=== PATIENT | male | born 1990 | race Caucasian/White ===

== ENCOUNTER 2019-06-27 12:45 | Inpatient (IN) | payer OTHER ==
--- NOTE | 2019-06-27 13:41 | PDOC ---
History of Present Illness - General Chief Complaint: Wound Stated Complaint: SENT BY PCP Time Seen by Provider: 06/27/19 13:10 - History of Present Illness Initial Comments: Mr. Giraldo is a 28 y/o male with PMH significant for autism, OCD, anxiety, depression, PTSD, spinal fracture s/p spinal nerve stimulator, eating disorder, chronic pain, constipation, sent in today by urgent care for worsening cellulitis. He lives in a halfway and is accompanied by a staff member from the facility. Reports that he was seen at urgent care 3 days ago for lethargy, was noted to have cellulitis, and given clindamycin 300 mg TID. He has been compliant with his medication. He began having a fever over the past day of 100.9, and noted increasing erythema over the right elbow and right knee. He presented to urgent care and was sent here for further evaluation. Reports chronic pelvic and back pain. Denies chest pain or shortness of breath or abdominal pain. Past History - Past Medical History Allergies/Adverse Reactions: Allergies Allergy/AdvReac Type Severity Reaction Status Date / Time amoxicillin Allergy Verified 06/27/19 12:56 peanut Allergy Verified 06/27/19 12:56 Home Medications: Ambulatory Orders Amitriptyline HCl 25 mg PO HS 06/27/19 Bacitracin - [Bacitracin Topical Ointment -] 1 applic .ROUTE TID 06/27/19 Cetirizine HCl 10 mg PO DAILY PRN 06/27/19 Cholecalciferol (Vitamin D3) [Vitamin D3] 2,000 unit PO DAILY 06/27/19 Clonazepam 1 mg PO TID PRN 06/27/19 Clonidine HCl [Clonidine HCl ER] 0.2 mg PO HS 06/27/19 Divalproex *ER* [Depakote *ER* -] 500 mg PO HS 06/27/19 Docusate Sodium [Colace -] 100 mg PO BID 06/27/19 Hydrocortisone Acetate 25 mg RC HS PRN 06/27/19 Methadone [Dolophine -] 5 mg PO HS 06/27/19 Methadone [Dolophine -] 10 mg PO BID 06/27/19 Mirtazapine 15 mg PO DAILY 06/27/19 Prazosin HCl [Minipress -] 2 mg PO DAILY 06/27/19 Pregabalin 50 mg PO TID 06/27/19 Pregabalin [Lyrica -] 50 mg PO TID 06/27/19 Propranolol HCl 30 mg PO DAILY 06/27/19 Propranolol HCl 60 mg PO BID 06/27/19 CVA: No COPD: No Psychiatric Problems: Yes - Psycho Social/Smoking Cessation Hx Smoking History: Never smoked Information on smoking cessation initiated: Yes Hx Alcohol Use: No Drug/Substance Use Hx: No Review of Systems - Review of Systems Comments:: GENERAL/CONSTITUTIONAL: Reports fever. No weakness._ HEAD, EYES, EARS, NOSE AND THROAT: No change in vision. No change in hearing. No sore throat._ CARDIOVASCULAR: No chest pain or shortness of breath_ RESPIRATORY: Denies cough, hemoptysis_ GASTROINTESTINAL: No nausea, vomiting, diarrhea or constipation._ GENITOURINARY: No dysuria, frequency, or change in urination._ MUSCULOSKELETAL: No joint or muscle swelling or pain. No neck or back pain._ SKIN: No rash_ NEUROLOGIC: No headache, vertigo, loss of consciousness, or change in strength/ sensation._ ENDOCRINE: No increased thirst. No abnormal weight change_ HEMATOLOGIC/LYMPHATIC: No anemia, easy bleeding, or history of blood clots._ ALLERGIC/IMMUNOLOGIC: No hives or skin allergy._ *Physical Exam - Vital Signs Last Vital Signs Temp Pulse Resp BP Pulse Ox 98 F 84 20 115/70 99 06/27/19 12:56 06/27/19 12:56 06/27/19 12:56 06/27/19 12:56 06/27/19 12:56 - Physical Exam Comments: GENERAL: Awake, alert, and oriented to person/place/time, in no acute distress_ HEAD: No signs of trauma, normocephalic, atraumatic _ EYES: PERRLA, EOMI, sclera anicteric, conjunctiva clear_ ENT: Hearing grossly normal, nares patent, oropharynx clear without exudates. No uvular deviation. Moist mucosa_ NECK: Normal ROM, supple, no lymphadenopathy, JVD, or masses_ LUNGS: No distress, speaks in full sentences, clear to auscultation bilaterally _ HEART: Regular rate and rhythm, normal S1 and S2, no murmurs appreciated, peripheral pulses normal and equal bilaterally._ ABDOMEN: Soft, nontender, normoactive bowel sounds. No guarding, no rebound. No masses_ EXTREMITIES: Normal range of motion, no edema. No clubbing or cyanosis. Multiple old, linear scars over the left upper arm. No new scars, lacerations, or cuts noted on exam. RUE: Inspection: Erythema over dorsal aspect of forearm and elbow measuring approx 9 cm x 4 cm. No ecchymosis. Warmth and tenderness over affected area. No obvious abnormalities, no open wounds. Compartments soft and compressible, pain within proportion, pain with range of motion. Sensation: intact and equal bilaterally Motor: intact AIN/PIN/Ulnar in hand; 5/5 Wrist flex/ext; 5/5 Elbow flex/ext; 5/ 5 Shoulder ABd,Flex Vascular: 2+ radial pulse palpated, BCR all fingers <2 sec. RLE: Inspection: No erythema or ecchymosis. Pressure ulcer over right lateral knee with tenderness. No obvious abnormalities, no open wounds. Compartments soft and compressible, pain within proportion. Pain with range of motion. Knee stable to anterior/posterior drawer and varus/valgus stress Sensation: intact and equal bilaterally Motor: 5/5 EHL, 5/5 FHL, 5/5 TA, 5/5GS, 5/5 Quad, 5/5 Ham Vascular: 2+ DP/PT, all toes BCR <2 sec NEUROLOGICAL: Cranial nerves II through XII grossly intact. Normal speech, normal gait, no focal sensorimotor deficits _ SKIN: Warm, Dry, normal turgor, no rashes or lesions noted_ ED Treatment Course - LABORATORY CBC & Chemistry Diagram: 06/27/19 14:23 06/27/19 14:23 Medical Decision Making - Medical Decision Making 06/27/19 14:15 28M presenting with fever 1 day and worsening cellulitis over the past 3 days. -cbc, cmp -blood cx, wound cx -XR right elbow, right knee 06/27/19 19:29 Self read of XR right elbow and right knee does not appear to show bony involvement. Labs reviewed. WBC wnl. Laboratory Tests 06/27/19 06/27/19 14:23 14:23 WBC 8.5 RBC 3.85 L Hgb 11.1 L Hct 33.2 L MCV 86.2 MCH 29.0 MCHC 33.6 RDW 14.0 Plt Count 103 L MPV 9.4 Absolute Neuts (auto) 5.3 Neutrophils % 63.1 Lymphocytes % 19.1 Monocytes % 16.1 H Eosinophils % 0.7 Basophils % 1.0 Nucleated RBC % 0 Sodium 134 L Potassium 3.9 Chloride 98 Carbon Dioxide 32 Anion Gap 5 L BUN 22.2 H Creatinine 1.1 Est GFR (CKD-EPI)AfAm 106.06 Est GFR (CKD-EPI)NonAf 91.51 Random Glucose 90 Calcium 8.4 L Total Bilirubin 0.7 AST 54 H ALT 28 Alkaline Phosphatase 32 L Total Protein 6.3 L Albumin 3.1 L Given patient's recent fever and worsening cellulitis after 3 days of clindamycin, plan to admit for cellulitis and failed outpatient abx treatment. Started on 1g of vancomycin IV. D/w the hospitalist team who agrees to admit the patient. All questions answered. Patient and parent and facility nurse in agreement with this plan. Discharge - Discharge Information Problems reviewed: Yes Clinical Impression/Diagnosis: Cellulitis Condition: Stable - Admission Yes - Follow up/Referral - Patient Discharge Instructions - Post Discharge Activity
[2019-06-27 14:37] LABS: EOS % 0.7 % (0-4.5); HEMATOCRIT 33.2 % (35.4-49); HEMOGLOBIN 11.1 GM/dL (11.7-16.9); LYMPH % 19.1 % (8-40); MCHC 33.6 g/dl (32.0-35.9); MEAN CELL VOLUME 86.2 fl (80-96); MEAN PLT VOLUME 9.4 fl (7.5-11.1); MONO % 16.1 % (3.8-10.2); NEUT % 63.1 % (42.8-82.8); PLATELET COUNT 103 K/MM3 (134-434); RBC 3.85 M/mm3 (4.00-5.60); WHITE BLOOD COUNT 8.5 K/mm3 (4.0-10.0)
[2019-06-27 15:05] LABS: ALBUMIN 3.1 g/dl (3.4-5.0); BILIRUBIN,TOTAL 0.7 mg/dL (0.2-1); BLOOD UREA NITROGEN 22.2 mg/dL (7-18); CALCIUM 8.4 mg/dL (8.5-10.1); CREATININE 1.1 mg/dL (0.55-1.3); POTASSIUM 3.9 mmol/L (3.5-5.1); TOT PROT 6.3 g/dl (6.4-8.2)
[2019-06-27] MEDS ORDERED: VANCOMYCIN 1 GRAM (PRE-DOCKED) 1,000 MG/250 ML BAG IVPB ONE ×2 (15:59→19:02)
[2019-06-27] MEDS: VANCOMYCIN 1 GM in D5W (PRE-DOCKED) 1,000 MG/250 ML IVPB SCH (16:05)
--- NOTE | 2019-06-27 17:21 | PDOC ---
Documentation entered by Wendie Anna SCRIBE, acting as scribe for Ike Tolentino MD. Ike Tolentino MD: This documentation has been prepared by the Wilfrido prince Brenda, SCRIBE, under my direction and personally reviewed by me in its entirety. I confirm that the documentation accurately reflects all work, treatment, procedures, and medical decision making performed by me. Attending Attestation - Resident Resident Name: Jus Dorsey - ED Attending Attestation I have performed the following: I have examined & evaluated the patient, The case was reviewed & discussed with the resident, I agree w/resident's findings & plan, Exceptions are as noted - HPI HPI: 06/27/19 15:00 28y M h xof autism, ocd, anxiety, depression, ptsd, spinral fx sp nerve stimulator, chronic pain, sent by urgent care for worsening cellulitis - p had an abrasion about a week ago, then started having redness and was noted to be lethagic, was evluated at [facility] and started on clinida for cellulitis, pt noted to have fever today and was sent to the ED for evaluation. pt has lesions on his face GENERAL: The patient is awake, alert, and fully oriented, Nontoxic - in no acute distress. HEAD: Normocephalic, atraumatic. EYES: extraocular movements intact, sclera anicteric, conjunctiva clear. ENT: Normal voice, Moist mucous membranes. NECK: Normal range of motion, supple LUNGS: Breath sounds equal, clear to auscultation bilaterally. No wheezes, no rhonchi, no rales. HEART: Regular rate and rhythm, normal S1 and S2 without murmur, rub or gallop. ABDOMEN: Soft, nontender, No guarding, no rebound. No CVA tenderness EXTREMITIES: R arm- erythema/edema/tendenes/induration on R elbow, able to passively rom elbow R knee - abrasion/eryhema withou significant warmth, induration NEUROLOGICAL: No facial assymetry, Normal speech, PSYCH: Normal mood, normal affect. SKIN: Warm, Dry, normal turgor, us to r.o dvt anticipate admissoin for failure of outpatient mangaement of cellulitis
[2019-06-27] MEDS ORDERED: METHADONE HCL 10 MG TABLET PO ONE (17:26)
[2019-06-27] MEDS ORDERED: clonazePAM 0.5 MG TABLET PO ONE (17:27)
[2019-06-27] MEDS ORDERED: PREGABALIN 75 MG CAPSULE PO ONE (17:27)
[2019-06-27] MEDS ORDERED: PROCHLORPERAZINE INJECTION 10 MG/2 ML VIAL IVPB ONE (18:59)
[2019-06-27] MEDS ORDERED: clonazePAM 0.5 MG TABLET ONE (19:01)
[2019-06-27] MEDS ORDERED: PREGABALIN 25 MG CAPSULE ONE (19:01)
[2019-06-27] MEDS ORDERED: METHADONE HCL 5 MG TABLET ONE (19:02)
--- NOTE | 2019-06-27 19:33 | PN ---
Teaching Attending Note Name of Resident: Izabella Wells ATTENDING PHYSICIAN STATEMENT I saw and evaluated the patient. I reviewed the resident's note and discussed the case with the resident. I agree with the resident's findings and plan as documented. SUBJECTIVE: Patient is a 28 year old man with PMH of Autism, OCD, anxiety, Depression, PTSD , Spinal fracture (s/p spinal nerve stimulator), Eating disorder, Chronic pain and Constipation, sent in today by urgent care for worsening cellulitis right elbow and right knee. Patient had an abrasion about a week ago, then started having redness and was noted to be lethagic. He lives in a [facility] and is accompanied by a staff member from the facility. Patient was seen at an [facility] 3 days ago for lethargy, was noted to have cellulitis, and given Clindamycin 300 mg TID. He has been compliant with his medication. He began having a fever over the past day of 100.9, and noted increasing erythema over the right elbow and right knee. He presented to urgent care and was sent here for further evaluation. Reports chronic pelvic and back pain. Denies chest pain or shortness of breath but has had abdominal pain and one loose bowel movement today. Patient unable to coherently describe circumstances surrounding his fall or how he sustained the injuries originally. Denies alcohol, tobacco or illicit drug use. No recent travel or sick contacts. OBJECTIVE: Alert Vital Signs Period Temp Pulse Resp BP Sys/Cast Pulse Ox Last 24 Hr 98 F-98.9 F 84-87 20-20 115-119/68-70 99-100 HEENT: No Jaundice, eye redness or discharge, PERRLA, EOMI. Normocephalic, atraumatic. Healed wound right side of face. External ears are normal and hearing is grossly intact. No nasal discharge. Neck: Supple, nontender. No palpable adenopathy or thyromegaly. No JVD Chest: Good effort. Clear to auscultation and percussion. Heart: Regular. No S3, rub or murmur Abdomen: Not distended, soft, nontender and no HSM. No rebound or guarding. Normal bowel sounds. Ext: Peripheral pulses intact. No leg edema. Erythema over dorsal aspect of forearm and elbow measuring approx 9 cm x 4 cm. Warmth and tenderness over affected area. Right knee wound. Skin: Warm and dry. No petechiae, rash or ecchymosis. Neuro: Alert. Oriented x3. CN 2-12 grossly intact. Sensation grossly intact in all four extremities and DTR are symmetric. Psych: Appropriate mood and affect. Good insight. Current Medications Generic Name Dose Route Start Last Admin Trade Name Catarina PRN Reason Stop Dose Admin Vancomycin HCl 1,000 mg 06/27/19 15:30 06/27/19 16:05 Vancomycin (Pre-Docked) IVPB 1,000 mg DAILY [facility] Administration Protocol Home Medications Medication Instructions Recorded Unobtainable 06/27/19 Abnormal Lab Results 06/27/19 06/27/19 14:23 14:23 RBC 3.85 L Hgb 11.1 L Hct 33.2 L Plt Count 103 L Monocytes % 16.1 H Sodium 134 L Anion Gap 5 L BUN 22.2 H Calcium 8.4 L AST 54 H Alkaline Phosphatase 32 L Total Protein 6.3 L Albumin 3.1 L ASSESSMENT AND PLAN: 1. Cellulitis of right elbow - Unclear whether reported lethargy can be attributed entirely to cellulitis. Xray of right elbow and knee do not reveal any significant acute abnormality. Will get head CT, CXR, Urinalysis and CT abdomen/pelvis. Treat with IV Vancomycin and consult ID. Send any diarrheal stool for studies including C.Diff. Etiology of low platelets is unclear - monitor daily. Will hydrate gently for possible dehydration. Will continue comprehensive care for all of patients comorbid conditions and implement fall precautions. 2. Hypoalbuminemia - Possibly due to combined effects of malnutrition and inflammation associated with comorbid chronic conditions. Will ensure adequate dietary protein intake and also consult senior administrative services officer. 3. Anemia - Likely multifactorial. Will do basic anemia work up including serial stool guaiacs, reticulocyte count and iron studies. 4. DVT prophylaxis - Heparin 5000u sq tid. 5. Advance directives - Full code
--- NOTE | 2019-06-27 20:29 | HP ---
CHIEF COMPLAINT: cellulitis PCP: Dr. Larson @ [facility] HISTORY OF PRESENT ILLNESS: 28M with PMH autism, OCD, anxiety, depression, PTSD, spinal fracture s/p spinal nerve stimulator, eating disorder, constipation who presents today from [facility] urgent care for further evaluation of cellulitis. Patient was noted to be lethargic by [facility] staff (has only been there for 3 weeks), so they took him to [facility] for evaluation. Incidentally they noted that he had erythema of his right elbow and started on clindamycin 300 mg TID. Patient was noted to be febrile yesterday and was brought to [facility] urgent care where they noted his cellulitis and referred him [facility] ED for further evaluation due to location of suspected cellulitis. Patient himself had no complaints of pain, warmth, erythema on his elbow earlier this week. Today he notes that right arm is warm and in pain from the elbow down to the wrist. He has not noticed any bleeding or pus from this arm. He denies any symptoms of fever, cough, shortness of breath, chest pain. He does endorse chronic abdominal pain, nausea. When patient was asked about his right knee wound, he was surprised that it was present and attributed it to sleeping on the carpet. Patient was also not aware on the left frontotemporal region of his head. Of note patient had difficulty remembering much of the history, so information was taken from chart review and speaking with Nurse at [facility]. ER course was notable for: (1)X-Ray of right elbow and knee were completed. Cultures were drawn of right knee and right elbow. Blood cultures sent Recent Travel: None PAST MEDICAL HISTORY: autism, OCD, anxiety, depression, PTSD, spinal fracture s/ p spinal nerve stimulator, eating disorder, constipation FAMILY MEDICAL HISTORY: Patient unable to provide family medical hx PAST SURGICAL HISTORY: spinal fracture s/p spinal nerve stimulator surgery Social History: Smoking: Quit smoking. Unable to quantify cigarette use. Quit vaping 5 months ago, used to have 5 puffs in an inhalational window Alcohol: Social Drugs: Denies Allergies amoxicillin Allergy (Verified 06/27/19 12:56) peanut Allergy (Verified 06/27/19 12:56) HOME MEDICATIONS: Home Medications Medication Instructions Recorded Unobtainable 06/27/19 REVIEW OF SYSTEMS CONSTITUTIONAL: Absent: fever, chills, diaphoresis, generalized weakness, malaise, loss of appetite, weight change CARDIOVASCULAR: Absent: chest pain, syncope, palpitations, irregular heart rate, lightheadedness , peripheral edema RESPIRATORY: Absent: cough, shortness of breath GASTROINTESTINAL: chronic abdominal pain, chronic constipation, chronic nausea, diarrhea Absent: abdominal distension, vomiting, GENITOURINARY: Absent: dysuria, frequency, urgency, hesitancy MUSCULOSKELETAL: joint swelling, chronic back pain Absent: myalgia, arthralgia, neck pain SKIN: Absent: rash, itching, pallors NEUROLOGIC: chronic unsteady gait Absent: headache, seizure, mental status changes, bladder or bowel incontinence PSYCHIATRIC: Absent: anxiety, depression, suicidal or homicidal ideation, hallucinations. PHYSICAL EXAMINATION Vital Signs - 24 hr 06/27/19 06/27/19 12:56 18:46 Temperature 98 F 98.9 F Pulse Rate 84 Pulse Rate [ 87 Apical] Respiratory 20 20 Rate Blood Pressure 115/70 Blood Pressure 119/68 [Left Arm] O2 Sat by Pulse 99 100 Oximetry (%) GENERAL: Awake, alert, and fully oriented, in no acute distress. HEAD: Normocephalic. 1x2cm closed wound on the right frontotemporal region. Non erythematous. EYES: Extraocular movements intact, sclera anicteric, conjunctiva clear. Wearing glasses EARS, NOSE, THROAT: Moist mucous membranes. NECK: Normal range of motion.. LUNGS: Breath sounds equal, clear to auscultation bilaterally. No wheezes, and no crackles. HEART: Regular rate and rhythm, normal S1 and S2 without murmur, rub or gallop. ABDOMEN: Soft, nontender, not distended, normoactive bowel sounds. MUSCULOSKELETAL: Normal passive range of motion at all joints. UPPER EXTREMITIES: 2+ pulses, warm, well-perfused. RUE has erythema on medial elbow to wrist. Swelling of the elbow. No weeping, or bleeding from. LOWER EXTREMITIES: 2+ pulses, warm, well-perfused. No calf tenderness. No peripheral edema. Lateral right knee has 3X3cm wound, no active bleeding or weeping. NEUROLOGICAL: 4/5 strength in all extremities. PSYCHIATRIC: Cooperative.Avoids eye contact . Flat affect Laboratory Results - last 24 hr CBC, BMP 06/27/19 14:23 06/27/19 14:23 ASSESSMENT/PLAN: 28M with PMH autism, OCD, anxiety, depression, PTSD, spinal fracture s/p spinal nerve stimulator, eating disorder, constipation who presents today from [facility] urgent care for further evaluation of cellulitis. 1)Cellulitis of right elbow -Patient was given outpatient antibiotics of Clindamycin 300 mg TID from [facility] , will start him on Vancomycin 1gram daily. ID consulted -Cellulitis is over the elbow joint in the right upper extremity- Ortho consulted, appreciate recs -No surgical intervention needed at this time. -Follow up blood culture and wound culture -Diarrhea may be related to laxative use. -NS @ 74ml/hr 2)Lethargy -Unsure if cellulitis is causing patient to be lethargic, [facility] cannot establish his baseline. -CT head shows no acute pathology -CT Abd/Pelvis shows Small amount of pelvic free fluid of uncertain etiology but which does suggest acute pathology. Large amount of stool. Moderate-sized right hip joint effusion of uncertain etiology, but infection is not excluded -F/U U/A 3)Anemia and Thrombocytopenia -Unknown eitology of thrombocytopenia, continue to monitor CBC -F/U iron studies -Reticulocyte count -Stool guaiac 4)Patient hx of mental health -Continuing home medications F: NS @ 74 ml E: Monitor BMP N: Regular diet DVT: Lovenox 40 mg SQ Dispo: Admitted to medicine floors Visit type - Emergency Visit Emergency Visit: Yes ED Registration Date: 06/27/19 Care time: The patient presented to the Emergency Department on the above date and was hospitalized for further evaluation of their emergent condition. - New Patient This patient is new to me today: Yes Date on this admission: 06/27/19 - Critical Care Critical Care patient: No ATTENDING PHYSICIAN STATEMENT I saw and evaluated the patient. I reviewed the resident's note and discussed the case with the resident. I agree with the resident's findings and plan as documented. SUBJECTIVE: OBJECTIVE: ASSESSMENT AND PLAN:
[2019-06-27] MEDS ORDERED: SODIUM CHLORIDE 1,000 ML IV SCH (20:30)
[2019-06-27] MEDS ORDERED: PATIENT'S OWN MEDICATION (NON-FORMULARY) (Cetirizine Hcl [Cetirizine Hcl] 10 MG) PO PRN (21:00)
[2019-06-27] MEDS ORDERED: PATIENT'S OWN MEDICATION (NON-FORMULARY) (Clonazepam [Clonazepam] 1 MG) PO PRN (21:00)
[2019-06-27] MEDS ORDERED: HYDROCORTISONE ACETATE 25 MG/SUPP.RECT RC PRN (21:00)
[2019-06-27] MEDS ORDERED: ENOXAPARIN NA (PORCINE) 40 MG/0.4 ML DISP.SYRIN SQ ONE (21:14)
[2019-06-27] MEDS ORDERED: CLONIDINE HCL 0.2 MG PO SCH (22:00)
[2019-06-27] MEDS ORDERED: METHADONE HCL 5 MG TABLET PO SCH (22:00)
[2019-06-27] MEDS ORDERED: PATIENT'S OWN MEDICATION (NON-FORMULARY) (Propranolol Hcl [Propranolol Hcl] 60 MG) PO SCH (22:00)
[2019-06-27] MEDS: ENOXAPARIN NA (PORCINE) 40 MG/0.4 ML DISP.SYRIN SQ SCH (22:26)
[2019-06-27] MEDS: SODIUM CHLORIDE 1,000 ML IV SCH (22:26)
[2019-06-28] MEDS: METHADONE HCL 10 MG TABLET PO SCH ×2 (00:36→09:31)
[2019-06-28] MEDS: DOCUSATE SODIUM 100 MG CAPSULE (FP) PO SCH ×2 (00:37→09:31)
[2019-06-28] MEDS: BACITRACIN 15 GM TUBE TOPICAL OINTMENT TP SCH ×3 (00:37→14:33)
[2019-06-28] MEDS: MIRTAZAPINE 15 MG TABLET (FP) PO SCH (00:38)
[2019-06-28] MEDS: PREGABALIN 50 MG CAPSULE PO SCH ×5 (00:38→14:31)
[2019-06-28] MEDS: AMITRIPTYLINE HCL 25 MG TABLET (FP) PO SCH (00:50)
[2019-06-28] MEDS: DIVALPROEX NA *ER* EXTEND REL 500 MG TABLET.SA (FP) PO SCH (00:50)
--- NOTE | 2019-06-28 01:30 | CONSULT ---
Consult - History of Present Illness Chief Complaint: right elbow, right knee History of Present Illness: 28y/o male c/o right elbow and knee pain which has been getting worse over the past few days. Was seen at an urgent care and was put on oral ABX and continued to get worse. was admitted for IV ABX. Pain is worse with touch and better with rest. He denies any injury or self harm. He states there was a wound along the lateral aspect of the elbow which was draining but no longer is. - History Source History Provided By: Patient, Medical Record - Alcohol/Substance Use Hx Alcohol Use: No - Smoking History Smoking history: Never smoked Home Medications - Allergies Allergies/Adverse Reactions: Allergies Allergy/AdvReac Type Severity Reaction Status Date / Time amoxicillin Allergy Verified 06/27/19 12:56 peanut Allergy Verified 06/27/19 12:56 - Home Medications Home Medications: Ambulatory Orders Amitriptyline HCl 25 mg PO HS 06/27/19 Bacitracin - [Bacitracin Topical Ointment -] 1 applic .ROUTE TID 06/27/19 Cetirizine HCl 10 mg PO DAILY PRN 06/27/19 Cholecalciferol (Vitamin D3) [Vitamin D3] 2,000 unit PO DAILY 06/27/19 Clonazepam 1 mg PO TID PRN 06/27/19 Clonidine HCl [Clonidine HCl ER] 0.2 mg PO HS 06/27/19 Divalproex *ER* [Depakote *ER* -] 500 mg PO HS 06/27/19 Docusate Sodium [Colace -] 100 mg PO BID 06/27/19 Hydrocortisone Acetate 25 mg RC HS PRN 06/27/19 Methadone [Dolophine -] 5 mg PO HS 06/27/19 Methadone [Dolophine -] 10 mg PO BID 06/27/19 Mirtazapine 15 mg PO DAILY 06/27/19 Prazosin HCl [Minipress -] 2 mg PO DAILY 06/27/19 Pregabalin 50 mg PO TID 06/27/19 Pregabalin [Lyrica -] 50 mg PO TID 06/27/19 Propranolol HCl 30 mg PO DAILY 06/27/19 Propranolol HCl 60 mg PO BID 06/27/19 Review of Systems - Review of Systems Constitutional: reports: No Symptoms Eyes: reports: No Symptoms HENT: reports: No Symptoms Neck: reports: No Symptoms Cardiovascular: reports: No Symptoms Respiratory: reports: No Symptoms Gastrointestinal: reports: No Symptoms Genitourinary: reports: No Symptoms Breasts: reports: No Symptoms Reported Musculoskeletal: reports: No Symptoms Integumentary: reports: Erythema, Wound Neurological: reports: No Symptoms Endocrine: reports: No Symptoms Hematology/Lymphatic: reports: No Symptoms Psychiatric: reports: Anxiety, Depression Physical Exam Vital Signs: Vital Signs Temperature 98.9 F 06/27/19 18:46 Pulse Rate 87 06/27/19 18:46 Respiratory Rate 20 06/27/19 18:46 Blood Pressure 119/68 06/27/19 18:46 O2 Sat by Pulse Oximetry (%) 100 06/27/19 21:00 Constitutional: Yes: Well Nourished, No Distress, Calm Musculoskeletal: Yes: Other (Right elbow: There is diffuse erythema from the distal 1/3 of the forearm extending past the elbow just distal to the olecrenon. No palpable abcess. The erythema is mostly posteior and radial. There is a 1x1 cm healed scab along the lateral aspect of the forearm just distal to the elbow. pain with moiton of the elbow. No tenderness along the joint. NVID. Compartments soft Right knee: there is a 4x3cm abrasion laterally along the knee. There is no surrounding erythema. There is mild tenderness here. Full motion of the knee. No tenderness along the knee joint. compartments soft. NVID.) Labs: CBC, BMP 06/27/19 14:23 06/27/19 14:23 Assessment/Plan #1 right elbow/forearm cellulitis without abcess #2 right knee abrasion -Will recheck arm/knee tomorrow. No surgical intervention indicated at this time. Continue ABX.
[2019-06-28 01:56] VITALS: BMI 22.8
[2019-06-28] MEDS: clonazePAM 0.5 MG TABLET PO SCH ×4 (05:40→14:33)
[2019-06-28] MEDS ORDERED: PT OWN MED DRAWER 7, Y5N ONE ×2 (06:15→23:25)
[2019-06-28] MEDS: cloNIDine HCL 0.1 MG TABLET PO SCH (09:30)
[2019-06-28] MEDS: VANCOMYCIN 1 GM in D5W (PRE-DOCKED) 1,000 MG/250 ML IVPB SCH (09:30)
[2019-06-28] MEDS: LORATADINE 10 MG TABLET PO SCH (09:30)
[2019-06-28] MEDS: CHOLECALCIFEROL (VIT D3) 1,000 UNIT (25 MCG) TABLET PO SCH (09:32)
[2019-06-28] MEDS ORDERED: PATIENT'S OWN MEDICATION (NON-FORMULARY) (Mirtazapine [Mirtazapine] 15 MG) PO SCH (10:00)
[2019-06-28 10:35] LABS: BASO % 0.8 % (0-2.0); HEMATOCRIT 34.8 % (35.4-49); HEMOGLOBIN 11.7 GM/dL (11.7-16.9); LYMPH % 38.8 % (8-40); MCHC 33.5 g/dl (32.0-35.9); MEAN CELL VOLUME 86.5 fl (80-96); MEAN PLT VOLUME 9.5 fl (7.5-11.1); MONO % 12.1 % (3.8-10.2); NEUT % 46.3 % (42.8-82.8); PLATELET COUNT 93 K/MM3 (134-434); RBC 4.02 M/mm3 (4.00-5.60); RDW 14.3 % (11.9-15.9)
[2019-06-28] MEDS ORDERED: PROCHLORPERAZINE INJECTION 10 MG/2 ML VIAL IVPB ONE (11:00)
[2019-06-28 11:08] LABS: ALBUMIN 2.7 g/dl (3.4-5.0); BILIRUBIN,TOTAL 0.6 mg/dL (0.2-1); BLOOD UREA NITROGEN 13.3 mg/dL (7-18); CALCIUM 8.5 mg/dL (8.5-10.1); CREATININE 0.9 mg/dL (0.55-1.3); POTASSIUM 3.3 mmol/L (3.5-5.1)
--- NOTE | 2019-06-28 11:34 | PN ---
Progress Note (short form) - Note Progress Note: SUBJECTIVE: Complains of LUE/LLE pain swelling, tenderness. No fever/chills. Denies any trauma. OBJECTIVE: Afebrile, Hemodynamicaly Stable. Last Vital Signs Temp Pulse Resp BP Pulse Ox 97.6 F 74 16 94/56 L 96 06/28/19 06:00 06/28/19 06:00 06/28/19 06:00 06/28/19 06:00 06/27/19 23:00 HEENT - Atraumatic, Normocephalic. Heart - S1, S2, RRR Lungs - clear to auscultation Abdomen - soft, non-tender. Bowel Sounds normal. Extremities - RUE swelling, tenderness proximal to and surrounding elbow. RLE erythema/swelling/tenderness on back of knee. Abrasion gallo on knee and elbow. Neuro - AAO x 3. Muted affect. Tone/Power normal all extremities. Laboratory Results - last 24 hr 06/27/19 06/27/19 06/28/19 14:23 14:23 08:25 WBC 8.5 5.0 RBC 3.85 L 4.02 Hgb 11.1 L 11.7 Hct 33.2 L 34.8 L MCV 86.2 86.5 MCH 29.0 29.0 MCHC 33.6 33.5 RDW 14.0 14.3 Plt Count 103 L 93 L MPV 9.4 9.5 Absolute Neuts (auto) 5.3 2.3 Neutrophils % 63.1 46.3 D Lymphocytes % 19.1 38.8 D Monocytes % 16.1 H 12.1 H Eosinophils % 0.7 2.0 D Basophils % 1.0 0.8 Nucleated RBC % 0 0 Retic Count 1.30 Sodium 134 L Potassium 3.9 Chloride 98 Carbon Dioxide 32 Anion Gap 5 L BUN 22.2 H Creatinine 1.1 Est GFR (CKD-EPI)AfAm 106.06 Est GFR (CKD-EPI)NonAf 91.51 Random Glucose 90 Calcium 8.4 L Iron TIBC Iron Saturation Unsaturated IBC Ferritin Total Bilirubin 0.7 AST 54 H ALT 28 Alkaline Phosphatase 32 L Total Protein 6.3 L Albumin 3.1 L 06/28/19 06/28/19 08:25 08:25 WBC RBC Hgb Hct MCV MCH MCHC RDW Plt Count MPV Absolute Neuts (auto) Neutrophils % Lymphocytes % Monocytes % Eosinophils % Basophils % Nucleated RBC % Retic Count Sodium 139 Potassium 3.3 L Chloride 99 Carbon Dioxide 32 Anion Gap 8 BUN 13.3 Creatinine 0.9 Est GFR (CKD-EPI)AfAm 135.19 Est GFR (CKD-EPI)NonAf 116.64 Random Glucose 66 L Calcium 8.5 Iron 32 L TIBC 186 L Iron Saturation 17 L Unsaturated IBC 154 L Ferritin 436.2 H Total Bilirubin 0.6 AST 40 H ALT 26 Alkaline Phosphatase 30 L Total Protein 6.0 L Albumin 2.7 L Current Medications Generic Name Dose Route Start Last Admin Trade Name Freq PRN Reason Stop Dose Admin Amitriptyline HCl 25 mg 06/27/19 22:00 06/28/19 00:50 Elavil - PO 25 mg HS [facility] Administration Bacitracin 1 applic 06/27/19 22:00 06/28/19 05:40 Bacitracin - TP 1 applic TID [facility] Administration Cholecalciferol 2,000 unit 06/28/19 10:00 06/28/19 09:32 Vitamin D3 - PO 2,000 unit DAILY [facility] Administration Clonazepam 1 mg 06/28/19 06:00 06/28/19 09:32 Klonopin - PO 1 mg TID [facility] Administration Clonidine 0.1 mg 06/28/19 10:00 06/28/19 09:30 Catapres - PO 0.1 mg BID [facility] Administration Divalproex Sodium 500 mg 06/27/19 22:00 06/28/19 00:50 Depakote *Er* - PO 500 mg HS [facility] Administration Docusate Sodium 100 mg 06/27/19 22:00 06/28/19 09:31 Colace - PO Not Given BID [facility] Enoxaparin Sodium 40 mg 06/27/19 20:45 06/27/19 22:26 Lovenox - SQ Not Given DAILY [facility] Hydrocortisone Acetate 25 mg 06/27/19 21:00 Anusol Hc Suppository - RC HS PRN PAIN Sodium Chloride 1,000 mls @ 74 mls/hr 06/27/19 21:52 06/27/19 22:26 Normal Saline - IV 74 mls/hr ASDIR [facility] Administration Loratadine 10 mg 06/28/19 10:00 06/28/19 09:30 Claritin - PO Not Given DAILY [facility] Methadone HCl 10 mg 06/27/19 22:00 06/28/19 09:31 Dolophine - PO 10 mg BID [facility] Administration Methadone HCl 5 mg 06/27/19 22:00 06/28/19 00:36 Dolophine - PO 5 mg HS [facility] Administration Mirtazapine 15 mg 06/27/19 23:15 06/28/19 00:38 Remeron - PO 15 mg HS [facility] Administration Potassium Chloride 40 meq 06/28/19 11:15 K-Dur - PO 06/28/19 22:01 BID [facility] Prazosin HCl 2 mg 06/28/19 10:00 Minipress - PO DAILY [facility] Pregabalin 50 mg 06/27/19 22:00 06/28/19 09:31 Lyrica - PO 50 mg TID [facility] Administration Propranolol HCl 60 mg 06/27/19 23:15 06/28/19 00:50 Inderal - PO 60 mg BID [facility] Administration Propranolol HCl 30 mg 06/28/19 12:00 Inderal - PO DAILY@1200 [facility] Vancomycin HCl 1,000 mg 06/27/19 15:30 06/28/19 09:30 Vancomycin (Pre-Docked) IVPB 1,000 mg DAILY [facility] Administration Protocol Home Medications Medication Instructions Recorded Amitriptyline HCl 25 mg PO HS 06/27/19 Bacitracin - [Bacitracin Topical 1 applic .ROUTE TID 06/27/19 Ointment -] Cetirizine HCl 10 mg PO DAILY PRN 06/27/19 Cholecalciferol (Vitamin D3) 2,000 unit PO DAILY 06/27/19 [Vitamin D3] Clonazepam 1 mg PO TID PRN 06/27/19 Clonidine HCl [Clonidine HCl ER] 0.2 mg PO HS 06/27/19 Divalproex *ER* [Depakote *ER* -] 500 mg PO HS 06/27/19 Docusate Sodium [Colace -] 100 mg PO BID 06/27/19 Hydrocortisone Acetate 25 mg RC HS PRN 06/27/19 Methadone [Dolophine -] 5 mg PO HS 06/27/19 Methadone [Dolophine -] 10 mg PO BID 06/27/19 Mirtazapine 15 mg PO DAILY 06/27/19 Prazosin HCl [Minipress -] 2 mg PO DAILY 06/27/19 Pregabalin 50 mg PO TID 06/27/19 Pregabalin [Lyrica -] 50 mg PO TID 06/27/19 Propranolol HCl 30 mg PO DAILY 06/27/19 Propranolol HCl 60 mg PO BID 06/27/19 ASSESSMENT/PLAN: 28 year old male with history of Autism, OCD, Anxiety, Depression, PTSD, Spinal fracture s/p spinal nerve stimulator, Chronic pain syndrome, chronic constipation, referred by for worsening cellulitis RUE/elbow and RLE/knee 1. Cellulitis RUE ?Septic arthritis. CT A/P - Moderate-sized right hip joint effusion of uncertain etiology, but infection is not excluded Orthopedics consulted. IV Vancomycin, ID consult. RUE US requested. 2. Chronic Pain Syndrome sec to spinal fracture s/p spinal stimulator (now removed) - on Methadone, Pregabalin. 3. Depression/Anxiety/OCD/PTSD - on Propanolol, Clonidine, Clonazepam, Mirtazapine, Amitrityline, Divalproex. 4. HTN - On Clonidine, Propanolol, Prazosin 5. Hypokalemia - repleted. 6. Anemia (normocytic)/Thrombocytopenia, etiology unclear ?medication related. Will check with pharmacy. Anemia work-up requested. DVT Px - Lovenox SQ. Visit type - Emergency Visit Emergency Visit: Yes ED Registration Date: 06/27/19 Care time: The patient presented to the Emergency Department on the above date and was hospitalized for further evaluation of their emergent condition. - New Patient This patient is new to me today: Yes Date on this admission: 07/02/19 - Critical Care Critical Care patient: No - Discharge Referral Referred to [facility] No
[2019-06-28] MEDS: PRAZOSIN HCL 2 MG CAPSULE PO SCH (11:51)
[2019-06-28] MEDS: ENOXAPARIN NA (PORCINE) 40 MG/0.4 ML DISP.SYRIN SQ SCH (11:51)
[2019-06-28] MEDS ORDERED: PROPRANOLOL HCL PO SCH (12:00)
[2019-06-28] MEDS: KETOROLAC TROMETHAMINE 30 MG/1 ML VIAL IVPUSH SCH ×2 (12:53→17:44)
[2019-06-28] MEDS: POTASSIUM CHLORIDE TABS 20 MEQ TABLET.ER (FP) PO SCH (12:53)
--- NOTE | 2019-06-28 13:38 | EKG ---
Test Reason : Blood Pressure : / mmHG Vent. Rate : 080 BPM Atrial Rate : 080 BPM P-R Int : 144 ms QRS Dur : 088 ms QT Int : 368 ms P-R-T Axes : 049 023 -25 degrees QTc Int : 424 ms NORMAL SINUS RHYTHM T WAVE ABNORMALITY, CONSIDER INFERIOR ISCHEMIA T WAVE ABNORMALITY, CONSIDER ANTEROLATERAL ISCHEMIA ABNORMAL ECG NO PREVIOUS ECGS AVAILABLE Confirmed by MD Gt, Yan ([id number]) on 06/28/2019 1:38:04 PM Referred By: Confirmed By:Yan Del Real MD
[2019-06-28 15:25] LABS: EPI CELLS 2.1 /HPF (0-5/HPF); HYALINE CASTS 6 /lpf (0-8); PH,URINE 6.5 (5.0-8.0); URINE APPEARANCE CLOUDY; URINE BACTERIA 0.2 /hpf (NEGATIVE); URINE BILIRUBIN NEGATIVE (NEGATIVE); URINE COLOR YELLOW; URINE GLUCOSE (UA) NEGATIVE (NEGATIVE); URINE KETONE 1+ (NEGATIVE); URINE LEUK ESTERASE NEGATIVE (NEGATIVE); URINE NITRITE NEGATIVE (NEGATIVE); URINE PROTEIN NEGATIVE (NEGATIVE); URINE RBC 292 /hpf (0-4); URINE WBC 4 /hpf (0-5)
[2019-06-28] MEDS: METHADONE HCL 5 MG TABLET PO SCH (17:45)
[2019-06-28] MEDS ORDERED: KETOROLAC TROMETHAMINE 30 MG/1 ML VIAL IVPUSH SCH (18:00)
[2019-06-28] MEDS ORDERED: DEXTROSE 5%-WATER 100 ML IVPB ONE (18:24)
[2019-06-28] MEDS: CEFTRIAXONE 2 GM in DEXTROSE 5%-WATER 100 ML IVPB SCH (18:26)
--- NOTE | 2019-06-28 18:26 | PN ---
Progress Note, Physician History of Present Illness: he feels a little better. he is resting in bed. - Current Medication List Current Medications: Active Medications Amitriptyline HCl (Elavil -) 25 mg PO HS [facility] Last Admin: 06/28/19 00:50 Dose: 25 mg Bacitracin (Bacitracin -) 1 applic TP TID [facility] Last Admin: 06/28/19 14:33 Dose: 1 applic Cholecalciferol (Vitamin D3 -) 2,000 unit PO DAILY [facility] Last Admin: 06/28/19 09:32 Dose: 2,000 unit Clonazepam (Klonopin -) 1 mg PO TID [facility] Last Admin: 06/28/19 14:33 Dose: 1 mg Clonidine (Catapres -) 0.1 mg PO BID [facility] Last Admin: 06/28/19 09:30 Dose: 0.1 mg Divalproex Sodium (Depakote *Er* -) 500 mg PO HS [facility] Last Admin: 06/28/19 00:50 Dose: 500 mg Docusate Sodium (Colace -) 100 mg PO BID [facility] Last Admin: 06/28/19 09:31 Dose: Not Given Enoxaparin Sodium (Lovenox -) 40 mg SQ DAILY [facility] Last Admin: 06/28/19 11:51 Dose: Not Given Hydrocortisone Acetate (Anusol Hc Suppository -) 25 mg RC HS PRN PRN Reason: PAIN Sodium Chloride (Normal Saline -) 1,000 mls @ 74 mls/hr IV ASDIR [facility] Last Admin: 06/27/19 22:26 Dose: 74 mls/hr Vancomycin HCl (Vancomycin (Pre-Docked)) 1,000 mg in 250 mls @ 166.667 mls/hr IVPB BID [facility]; Protocol Ceftriaxone Sodium 2 gm/ (Dextrose) 100 mls @ 200 mls/hr IVPB DAILY [facility]; Protocol Ketorolac Tromethamine (Toradol Injection -) 30 mg IVPUSH Q8H-IV [facility] Stop: 07/03/19 12:44 Last Admin: 06/28/19 17:44 Dose: 30 mg Loratadine (Claritin -) 10 mg PO DAILY [facility] Last Admin: 06/28/19 09:30 Dose: Not Given Methadone HCl (Dolophine -) 10 mg PO BID [facility] Last Admin: 06/28/19 09:31 Dose: 10 mg Methadone HCl (Dolophine -) 5 mg PO DAILY@1800 [facility] Last Admin: 06/28/19 17:45 Dose: 5 mg Mirtazapine (Remeron -) 15 mg PO HS [facility] Last Admin: 06/28/19 00:38 Dose: 15 mg Potassium Chloride (K-Dur -) 40 meq PO BID [facility] Stop: 06/28/19 22:01 Last Admin: 06/28/19 12:53 Dose: 40 meq Prazosin HCl (Minipress -) 2 mg PO DAILY [facility] Last Admin: 06/28/19 11:51 Dose: 2 mg Pregabalin (Lyrica -) 50 mg PO TID [facility] Last Admin: 06/28/19 14:31 Dose: 50 mg Propranolol HCl (Inderal -) 60 mg PO BID [facility] Last Admin: 06/28/19 11:52 Dose: Not Given Propranolol HCl (Inderal -) 30 mg PO DAILY@1400 [facility] - Objective Vital Signs: Vital Signs Temperature 97.3 F L 06/28/19 15:09 Pulse Rate 85 06/28/19 15:09 Respiratory Rate 18 06/28/19 15:09 Blood Pressure 114/61 06/28/19 15:09 O2 Sat by Pulse Oximetry (%) 96 06/27/19 23:00 Constitutional: Yes: Well Nourished, No Distress, Calm Musculoskeletal: Yes: Other (RUE: 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 Mild edema of the forearm. No palpable abcess. Full motion of the elbow. Diffuse tenderness along the proximal forearm. NVID.) Labs: CBC, BMP 06/28/19 08:25 06/28/19 08:25 - ....Imaging Ultrasound: Report Reviewed Assessment/Plan #1 RUE cellulits, RLE wound -Continue IV ABX -No surgical indication at this time -pain control
--- NOTE | 2019-06-28 21:36 | PN ---
Progress Note (short form) - Note Progress Note: ID CONSULT DICTATED CELLULITIS R ELBOW,POSSIBLE BURSITITIS ORTHO EVALUATION EMPIRIC CEFTRIAXONE/ VANCOMYCIN
[2019-06-29] MEDS: POTASSIUM CHLORIDE TABS 20 MEQ TABLET.ER (FP) PO SCH (00:07)
[2019-06-29] MEDS: DOCUSATE SODIUM 100 MG CAPSULE (FP) PO SCH ×3 (00:08→21:56)
[2019-06-29] MEDS: cloNIDine HCL 0.1 MG TABLET PO SCH ×3 (00:08→21:56)
[2019-06-29] MEDS: PREGABALIN 50 MG CAPSULE PO SCH ×4 (00:08→21:56)
[2019-06-29] MEDS: clonazePAM 0.5 MG TABLET PO SCH ×4 (00:08→21:57)
[2019-06-29] MEDS: METHADONE HCL 10 MG TABLET PO SCH ×3 (00:09→21:56)
[2019-06-29] MEDS: DIVALPROEX NA *ER* EXTEND REL 500 MG TABLET.SA (FP) PO SCH ×2 (00:09→22:04)
[2019-06-29] MEDS: MIRTAZAPINE 15 MG TABLET (FP) PO SCH ×2 (00:10→21:56)
[2019-06-29] MEDS: AMITRIPTYLINE HCL 25 MG TABLET (FP) PO SCH ×2 (00:10→22:05)
[2019-06-29] MEDS: VANCOMYCIN 1 GRAM (PRE-DOCKED) 1,000 MG/250 ML BAG IVPB SCH ×2 (00:14→10:09)
[2019-06-29] MEDS: BACITRACIN 15 GM TUBE TOPICAL OINTMENT TP SCH ×4 (00:15→21:56)
[2019-06-29] MEDS: SODIUM CHLORIDE 1,000 ML IV SCH ×2 (00:15→21:56)
--- NOTE | 2019-06-29 01:08 | CONS ---
DATE OF CONSULTATION: DATE OF DICTATION: 06/29/2019 The patient is a 28-year-old male with a history of autism, OCD, anxiety, depression, PTSD, who was evaluated for cellulitis of the right elbow. History is obtained primarily from the chart. He resides at a [facility]. He was admitted to the hospital on June 27, 2019 after he was noted to have increasing lethargy. He was taken to an urgent care center where he was diagnosed with cellulitis of his right upper extremity. He was started on p.o. clindamycin. Despite the antibiotic therapy, he had persistent swelling and had developed fever. He is now admitted with cellulitis of the right elbow as well as an ulceration present on the lateral aspect of the right lower extremity. He denies any traumatic injury. No insect or animal bites or scratches. PAST MEDICAL HISTORY: Positive for autism, OCD, anxiety and depression, PTSD. ALLERGIES: AMOXICILLIN. Patient is unable to tell me the nature of the AMOXICILLIN ALLERGY. MEDICATIONS: Include Elavil, ceftriaxone, Klonopin, Catapres, Depakote, Colace, Lovenox, methadone, vancomycin, propranolol. SOCIAL HISTORY: Resides in a [facility], nonsmoker, nondrinker. LABORATORY DATA: White count 5.0, hematocrit 34.8, platelets 93,000. BUN 13, creatinine 0.9. Urinalysis: Negative leukocyte esterase. Blood cultures and wound culture pending. PHYSICAL EXAMINATION: General: He is a young male, in no acute distress. Vital Signs: Temperature 97.3, blood pressure 114/61, pulse 85 and regular, respirations 18 per minute. HEENT: Sclerae anicteric. Heart Sounds: S1, S2. Lungs: Clear. Abdomen: Soft, nontender. Extremities: Examination of the right upper extremity reveals swelling present over the extensor aspect of the right upper extremity over the elbow. The elbow joint itself is intact with good range of motion and the patient is able to flex his elbow. The swelling is primarily on the extensor aspect over the area of the olecranon bursa. It is slightly erythematous and warm. There is no purulent drainage. There is a superficial ulceration present on the lateral aspect of the right knee. No purulent drainage is noted. No knee swelling present. The right knee has full range of motion. IMPRESSION: 1. Cellulitis of the right upper extremity. 2. Rule out bursitis/infected olecranon bursa. 3. Thrombocytopenia. 4. History of autism, obsessive compulsive syndrome, anxiety and depression. 5. AMOXICILLIN ALLERGY. PLAN: Await cultures. Orthopedic evaluation. Empiric antibiotic coverage with vancomycin and ceftriaxone. Analgesics. Will follow. Thank you for the kind referral. TERRI EDMONDS M.D. [id number]
[2019-06-29] MEDS: KETOROLAC TROMETHAMINE 30 MG/1 ML VIAL IVPUSH SCH ×4 (02:22→18:00)
[2019-06-29] MEDS ORDERED: DEXTROSE 5%-WATER 100 ML IVPB ONE (08:42)
[2019-06-29] MEDS: CEFTRIAXONE 2 GM in DEXTROSE 5%-WATER 100 ML IVPB SCH (08:49)
[2019-06-29] MEDS ORDERED: PT OWN MED DRAWER 7, Y5N ONE ×4 (09:54→23:49)
[2019-06-29] MEDS: CHOLECALCIFEROL (VIT D3) 1,000 UNIT (25 MCG) TABLET PO SCH (10:10)
[2019-06-29] MEDS: LORATADINE 10 MG TABLET PO SCH (10:10)
[2019-06-29] MEDS: PRAZOSIN HCL 2 MG CAPSULE PO SCH (10:12)
[2019-06-29] MEDS: ENOXAPARIN NA (PORCINE) 40 MG/0.4 ML DISP.SYRIN SQ SCH (10:12)
[2019-06-29] MEDS ORDERED: PROCHLORPERAZINE INJECTION 10 MG/2 ML VIAL IVPB ONE (11:22)
--- NOTE | 2019-06-29 12:02 | PN ---
Teaching Attending Note Name of Resident: Mely Ellis ATTENDING PHYSICIAN STATEMENT I saw and evaluated the patient. I reviewed the resident's note and discussed the case with the resident. I agree with the resident's findings and plan as documented. SUBJECTIVE: Reports some improvement in LUE/LLE pain, tenderness. No fever/ chills. Denies any trauma. OBJECTIVE: Afebrile, Hemodynamicaly Stable. Last Vital Signs Temp Pulse Resp BP Pulse Ox 97.4 F L 81 18 122/70 98 06/29/19 05:48 06/29/19 05:48 06/29/19 05:48 06/29/19 05:48 06/28/19 21:00 Heart - S1, S2, RRR Lungs - clear to auscultation Abdomen - soft, non-tender. Bowel Sounds normal. Extremities - RUE swelling, tenderness proximal to and surrounding elbow. RLE erythema/swelling/tenderness on back of knee. Abrasion gallo on knee and elbow. Neuro - AAO x 3. Muted affect. Tone/Power normal all extremities. Laboratory Results - last 24 hr 06/28/19 06/28/19 08:25 12:00 Sodium 139 Potassium 3.3 L Chloride 99 Carbon Dioxide 32 Anion Gap 8 BUN 13.3 Creatinine 0.9 Est GFR (CKD-EPI)AfAm 135.19 Est GFR (CKD-EPI)NonAf 116.64 Random Glucose 66 L Calcium 8.5 Total Bilirubin 0.6 AST 40 H ALT 26 Alkaline Phosphatase 30 L Total Protein 6.0 L Albumin 2.7 L Vitamin B12 446 Serum Folate 7 Urine Color Yellow Urine Appearance Cloudy Urine pH 6.5 Ur Specific [place] 1.017 Urine Protein Negative Urine Glucose (UA) Negative Urine Ketones 1+ H Urine Blood 3+ H Urine Nitrite Negative Urine Bilirubin Negative Urine Urobilinogen 1.0 Ur Leukocyte Esterase Negative Urine WBC (Auto) 4 Urine RBC (Auto) 292 Urine Casts (Auto) 6 U Epithel Cells (Auto) 2.1 Urine Bacteria (Auto) 0.2 Current Medications Generic Name Dose Route Start Last Admin Trade Name Freq PRN Reason Stop Dose Admin Amitriptyline HCl 25 mg 06/27/19 22:00 06/29/19 00:10 Elavil - PO 25 mg HS [facility] Administration Bacitracin 1 applic 06/27/19 22:00 06/29/19 05:27 Bacitracin - TP 1 applic TID [facility] Administration Cholecalciferol 2,000 unit 06/28/19 10:00 06/29/19 10:10 Vitamin D3 - PO 2,000 unit DAILY [facility] Administration Clonazepam 1 mg 06/28/19 06:00 06/29/19 05:26 Klonopin - PO 1 mg TID [facility] Administration Clonidine 0.1 mg 06/28/19 10:00 06/29/19 10:10 Catapres - PO 0.1 mg BID [facility] Administration Divalproex Sodium 500 mg 06/27/19 22:00 06/29/19 00:09 Depakote *Er* - PO 500 mg HS [facility] Administration Docusate Sodium 100 mg 06/27/19 22:00 06/29/19 10:10 Colace - PO 100 mg BID [facility] Administration Enoxaparin Sodium 40 mg 06/27/19 20:45 06/29/19 10:12 Lovenox - SQ Not Given DAILY [facility] Hydrocortisone Acetate 25 mg 06/27/19 21:00 Anusol Hc Suppository - RC HS PRN PAIN Sodium Chloride 1,000 mls @ 74 mls/hr 06/27/19 21:52 06/29/19 00:15 Normal Saline - IV Not Given ASDIR [facility] Vancomycin HCl 1,000 mg in 250 mls @ 166.667 mls/hr 06/28/19 22:00 06/29/19 10:09 Vancomycin (Pre-Docked) IVPB 166.667 mls/hr BID [facility] Administration Protocol Ceftriaxone Sodium 2 gm/ 100 mls @ 200 mls/hr 06/28/19 18:15 06/29/19 08:49 Dextrose IVPB 200 mls/hr DAILY [facility] Administration Protocol Ketorolac Tromethamine 30 mg 06/28/19 12:45 06/29/19 08:49 Toradol Injection - IVPUSH 07/03/19 12:44 30 mg Q8H-IV [facility] Administration Loratadine 10 mg 06/28/19 10:00 06/29/19 10:10 Claritin - PO 10 mg DAILY [facility] Administration Methadone HCl 10 mg 06/27/19 22:00 06/29/19 10:10 Dolophine - PO 10 mg BID [facility] Administration Methadone HCl 5 mg 06/28/19 18:00 06/28/19 17:45 Dolophine - PO 5 mg DAILY@1800 [facility] Administration Mirtazapine 15 mg 06/27/19 23:15 06/29/19 00:10 Remeron - PO 15 mg HS [facility] Administration Prazosin HCl 2 mg 06/28/19 10:00 06/29/19 10:12 Minipress - PO 2 mg DAILY [facility] Administration Pregabalin 50 mg 06/27/19 22:00 06/29/19 05:26 Lyrica - PO 50 mg TID [facility] Administration Prochlorperazine Edisylate 5 mg 06/29/19 11:22 Compazine Injection - IVPB 06/29/19 11:23 ONCE ONE Propranolol HCl 60 mg 06/27/19 23:15 06/29/19 10:11 Inderal - PO 60 mg BID [facility] Administration Propranolol HCl 30 mg 06/29/19 14:00 Inderal - PO DAILY@1400 [facility] Home Medications Medication Instructions Recorded Amitriptyline HCl 25 mg PO HS 06/27/19 Bacitracin - [Bacitracin Topical 1 applic .ROUTE TID 06/27/19 Ointment -] Cetirizine HCl 10 mg PO DAILY PRN 06/27/19 Cholecalciferol (Vitamin D3) 2,000 unit PO DAILY 06/27/19 [Vitamin D3] Clonazepam 1 mg PO TID PRN 06/27/19 Clonidine HCl [Clonidine HCl ER] 0.2 mg PO HS 06/27/19 Divalproex *ER* [Depakote *ER* -] 500 mg PO HS 06/27/19 Docusate Sodium [Colace -] 100 mg PO BID 06/27/19 Hydrocortisone Acetate 25 mg RC HS PRN 06/27/19 Methadone [Dolophine -] 5 mg PO HS 06/27/19 Methadone [Dolophine -] 10 mg PO BID 06/27/19 Mirtazapine 15 mg PO DAILY 06/27/19 Prazosin HCl [Minipress -] 2 mg PO DAILY 06/27/19 Pregabalin 50 mg PO TID 06/27/19 Pregabalin [Lyrica -] 50 mg PO TID 06/27/19 Propranolol HCl 30 mg PO DAILY 06/27/19 Propranolol HCl 60 mg PO BID 06/27/19 ASSESSMENT/PLAN: 28 year old male with history of Autism, OCD, Anxiety, Depression, PTSD, Spinal fracture s/p spinal nerve stimulator, Chronic pain syndrome, chronic constipation, referred by UC for worsening cellulitis RUE/elbow and RLE/knee 1. Cellulitis RUE/RLE CT A/P - Moderate-sized right hip joint effusion of uncertain etiology, but infection is not excluded Orthopedics consulted - no need for surgical intervention. IV Ceftriaxone/Vancomycin. Wound Cx neg. RUE US - no DVT. ID consulted for recommendations regarding further abx therapy. 2. Chronic Pain Syndrome sec to spinal fracture s/p spinal stimulator (now removed) - on Methadone, Pregabalin. 3. Depression/Anxiety/OCD/PTSD - on Propanolol, Clonidine, Clonazepam, Mirtazapine, Amitrityline, Divalproex. 4. HTN - On Clonidine, Propanolol, Prazosin 5. Hypokalemia - repleted. 6. Anemia (normocytic)/Thrombocytopenia, etiology unclear - ?medication related. Will check with pharmacy.B12/Fol/Ferritin are at levels that are nondeficient. DVT Px - Lovenox SQ. Medically stable for discharge once ID clears for transition to oral ABx.
--- NOTE | 2019-06-29 16:09 | PN ---
Physical Exam: SUBJECTIVE: Patient seen and examined in the morning. No acute events overnight. No complaints of chest pain, shortness of breath, no fever, no cough , no pain in his arms or legs. OBJECTIVE: Vital Signs Period Temp Pulse Resp BP Sys/Cast Pulse Ox Last 24 Hr 97.4 F-98.6 F 74-82 18-20 98-122/51-80 98 GENERAL: Awake, alert, and fully oriented, in no acute distress. HEAD: Normocephalic. EYES: Extraocular movements intact, sclera anicteric, conjunctiva clear. Wearing glasses EARS, NOSE, THROAT: Moist mucous membranes. NECK: Normal range of motion.. LUNGS: Breath sounds equal, clear to auscultation bilaterally. No wheezes, and no crackles. HEART: Regular rate and rhythm, normal S1 and S2 without murmur, rub or gallop. ABDOMEN: Soft, nontender, not distended, normoactive bowel sounds. MUSCULOSKELETAL: Normal passive range of motion at all joints. UPPER EXTREMITIES: 2+ pulses, warm, well-perfused. RUE has erythema on medial elbow to wrist. Swelling of the elbow. No weeping, or bleeding. Decreased as compared to admission. LOWER EXTREMITIES: 2+ pulses, warm, well-perfused. No calf tenderness. No peripheral edema. Dressing in place to cover wound on lower right leg. NEUROLOGICAL: 4/5 strength in all extremities. PSYCHIATRIC: Cooperative.Avoids eye contact . Flat affect Active Medications Generic Name Dose Route Start Last Admin Trade Name Freq PRN Reason Stop Dose Admin Amitriptyline HCl 25 mg 06/27/19 22:00 06/29/19 00:10 Elavil - PO 25 mg HS STEPHON Administration Bacitracin 1 applic 06/27/19 22:00 06/29/19 05:27 Bacitracin - TP 1 applic TID STEPHON Administration Cholecalciferol 2,000 unit 06/28/19 10:00 06/29/19 10:10 Vitamin D3 - PO 2,000 unit DAILY STEPHON Administration Clonazepam 1 mg 06/28/19 06:00 06/29/19 14:16 Klonopin - PO 1 mg TID STEPHON Administration Clonidine 0.1 mg 06/28/19 10:00 06/29/19 10:10 Catapres - PO 0.1 mg BID STEPHON Administration Divalproex Sodium 500 mg 06/27/19 22:00 06/29/19 00:09 Depakote *Er* - PO 500 mg HS STEPHON Administration Docusate Sodium 100 mg 06/27/19 22:00 06/29/19 10:10 Colace - PO 100 mg BID STEPHON Administration Enoxaparin Sodium 40 mg 06/27/19 20:45 06/29/19 10:12 Lovenox - SQ Not Given DAILY STEPHON Hydrocortisone Acetate 25 mg 06/27/19 21:00 Anusol Hc Suppository - RC HS PRN PAIN Sodium Chloride 1,000 mls @ 74 mls/hr 06/27/19 21:52 06/29/19 00:15 Normal Saline - IV Not Given ASDIR STEPHON Vancomycin HCl 1,000 mg in 250 mls @ 166.667 mls/hr 06/28/19 22:00 06/29/19 10:09 Vancomycin (Pre-Docked) IVPB 166.667 mls/hr BID STEPHON Administration Protocol Ceftriaxone Sodium 2 gm/ 100 mls @ 200 mls/hr 06/28/19 18:15 06/29/19 08:49 Dextrose IVPB 200 mls/hr DAILY STEPHON Administration Protocol Ketorolac Tromethamine 30 mg 06/28/19 12:45 06/29/19 08:49 Toradol Injection - IVPUSH 07/03/19 12:44 30 mg Q8H-IV STEPHON Administration Loratadine 10 mg 06/28/19 10:00 06/29/19 10:10 Claritin - PO 10 mg DAILY STEPHON Administration Methadone HCl 10 mg 06/27/19 22:00 06/29/19 10:10 Dolophine - PO 10 mg BID STEPHON Administration Methadone HCl 5 mg 06/28/19 18:00 06/28/19 17:45 Dolophine - PO 5 mg DAILY@1800 STEPHON Administration Mirtazapine 15 mg 06/27/19 23:15 06/29/19 00:10 Remeron - PO 15 mg HS STEPHON Administration Prazosin HCl 2 mg 06/28/19 10:00 06/29/19 10:12 Minipress - PO 2 mg DAILY STEPHON Administration Pregabalin 50 mg 06/27/19 22:00 06/29/19 14:16 Lyrica - PO 50 mg TID STEPHON Administration Propranolol HCl 60 mg 06/27/19 23:15 06/29/19 10:11 Inderal - PO 60 mg BID STEPHON Administration Propranolol HCl 30 mg 06/29/19 14:00 06/29/19 14:18 Inderal - PO 30 mg DAILY@1400 [facility] Administration ASSESSMENT/PLAN: 28M with PMH autism, OCD, anxiety, depression, PTSD, spinal fracture s/p spinal nerve stimulator which was removed, eating disorder, constipation who presents today from [facility] urgent care for further evaluation of cellulitis. 1)Cellulitis of right elbow -Patient was given outpatient antibiotics of Clindamycin 300 mg TID from [facility] , will start him on Vancomycin 1gram daily. ID consulted -Cellulitis is over the elbow joint in the right upper extremity- Ortho consulted, appreciate recs. No surgical intervention indicated. -Follow up blood culture and wound culture -Diarrhea may be related to laxative use. -NS @ 74ml/hr -ID consulted, patient started on vancomycin and ceftriaxone. Appreciate recs. -White count trending down. 2)Lethargy -Unsure if cellulitis is causing patient to be lethargic, fci cannot establish his baseline. -CT head shows no acute pathology -CT Abd/Pelvis shows Small amount of pelvic free fluid of uncertain etiology but which does suggest acute pathology. Large amount of stool. Moderate-sized right hip joint effusion of uncertain etiology, but infection is not excluded -U/A doesn't indicate UTI. No other sources of infection found outside of cellulitis. 3)Anemia and Thrombocytopenia -Unknown eitology of thrombocytopenia, continue to monitor CBC -Iron studies don't indicate iron deficiency. -Reticulocyte count normal. -Stool guaiac 4)Patient hx of depression/anxiety/OCD/PTSD- -Continuing home methadone, clonidine, clonazepam, mirtazapine, amitryptline, divalproex, propranolol, pregabalin. F: NS @ 74 ml E: Monitor BMP N: Regular diet DVT: Lovenox 40 mg SQ Dispo: Admitted to medicine floors. Discharge pending on switch to oral antibiotics. Visit type - Emergency Visit Emergency Visit: Yes ED Registration Date: 06/27/19 Care time: The patient presented to the Emergency Department on the above date and was hospitalized for further evaluation of their emergent condition. - New Patient This patient is new to me today: No - Critical Care Critical Care patient: No ATTENDING PHYSICIAN STATEMENT I saw and evaluated the patient. I reviewed the resident's note and discussed the case with the resident. I agree with the resident's findings and plan as documented. SUBJECTIVE: OBJECTIVE: ASSESSMENT AND PLAN:
--- NOTE | 2019-06-29 16:36 | PN ---
Progress Note, Physician History of Present Illness: AWAKE IN BED REPORTS SIGNIFICANT IMPROVEMENT R ELBOW PAIN AFEBRILE CULTURES NEGATIVE - Current Medication List Current Medications: Active Medications Amitriptyline HCl (Elavil -) 25 mg PO HS [facility] Last Admin: 06/29/19 00:10 Dose: 25 mg Bacitracin (Bacitracin -) 1 applic TP TID STEPHON Last Admin: 06/29/19 05:27 Dose: 1 applic Cholecalciferol (Vitamin D3 -) 2,000 unit PO DAILY STEPHON Last Admin: 06/29/19 10:10 Dose: 2,000 unit Clonazepam (Klonopin -) 1 mg PO TID STEPHON Last Admin: 06/29/19 14:16 Dose: 1 mg Clonidine (Catapres -) 0.1 mg PO BID [facility] Last Admin: 06/29/19 10:10 Dose: 0.1 mg Divalproex Sodium (Depakote *Er* -) 500 mg PO HS [facility] Last Admin: 06/29/19 00:09 Dose: 500 mg Docusate Sodium (Colace -) 100 mg PO BID [facility] Last Admin: 06/29/19 10:10 Dose: 100 mg Enoxaparin Sodium (Lovenox -) 40 mg SQ DAILY [facility] Last Admin: 06/29/19 10:12 Dose: Not Given Hydrocortisone Acetate (Anusol Hc Suppository -) 25 mg RC HS PRN PRN Reason: PAIN Sodium Chloride (Normal Saline -) 1,000 mls @ 74 mls/hr IV ASDIR [facility] Last Admin: 06/29/19 00:15 Dose: Not Given Vancomycin HCl (Vancomycin (Pre-Docked)) 1,000 mg in 250 mls @ 166.667 mls/hr IVPB BID STEPHON; Protocol Last Admin: 06/29/19 10:09 Dose: 166.667 mls/hr Ceftriaxone Sodium 2 gm/ (Dextrose) 100 mls @ 200 mls/hr IVPB DAILY [facility]; Protocol Last Admin: 06/29/19 08:49 Dose: 200 mls/hr Ketorolac Tromethamine (Toradol Injection -) 30 mg IVPUSH Q8H-IV STEPHON Stop: 07/03/19 12:44 Last Admin: 06/29/19 08:49 Dose: 30 mg Loratadine (Claritin -) 10 mg PO DAILY [facility] Last Admin: 06/29/19 10:10 Dose: 10 mg Methadone HCl (Dolophine -) 10 mg PO BID [facility] Last Admin: 06/29/19 10:10 Dose: 10 mg Methadone HCl (Dolophine -) 5 mg PO DAILY@1800 [facility] Last Admin: 06/28/19 17:45 Dose: 5 mg Mirtazapine (Remeron -) 15 mg PO HS [facility] Last Admin: 06/29/19 00:10 Dose: 15 mg Prazosin HCl (Minipress -) 2 mg PO DAILY [facility] Last Admin: 06/29/19 10:12 Dose: 2 mg Pregabalin (Lyrica -) 50 mg PO TID [facility] Last Admin: 06/29/19 14:16 Dose: 50 mg Propranolol HCl (Inderal -) 60 mg PO BID [facility] Last Admin: 06/29/19 10:11 Dose: 60 mg Propranolol HCl (Inderal -) 30 mg PO DAILY@1400 [facility] Last Admin: 06/29/19 14:18 Dose: 30 mg - Objective Vital Signs: Vital Signs Temperature 97.6 F 06/29/19 15:41 Pulse Rate 74 06/29/19 15:41 Respiratory Rate 18 06/29/19 15:41 Blood Pressure 98/51 L 06/29/19 15:41 O2 Sat by Pulse Oximetry (%) 98 06/28/19 21:00 Constitutional: Yes: No Distress Eyes: Yes: Conjunctiva Clear Cardiovascular: Yes: Regular Rate and Rhythm, S1, S2 Respiratory: Yes: CTA Bilaterally Gastrointestinal: Yes: Normal Bowel Sounds, Soft. No: Tenderness Extremities: Yes: Other (R ELBOW FROM DECREASED SWELLING STILL WARM NO ERYTHEMA) Labs: CBC, BMP 06/28/19 08:25 06/28/19 08:25 Assessment/Plan CELLULITIS R ELBOW IMPROVED HX AMOXICILLIN ALLERGY ( REPORTS GI UPSET) SUBSTITUTE KEFLEX 500MG PO Q6H X 7D
[2019-06-29] MEDS: CEPHALEXIN MONOHYDRATE 500 MG CAPSULE (UD) PO SCH ×2 (18:12→23:57)
[2019-06-29] MEDS: METHADONE HCL 5 MG TABLET PO SCH (18:12)
--- NOTE | 2019-06-29 19:10 | PN ---
Progress Note (short form) - Note Progress Note: Pt lying comf in bed. Wants to leave. States some occasional discomfort and warmth in elbow. PE afvss RUE trace erythema FROM elbow without pain NVID RLE wound with small serous drainage small erythema and warmth FROM knee no effusion NVID A: resolving wound, cellulitis P: continue abx per ID stable for dc from ortho perspective can follow up as outpt if needed
[2019-06-30] MEDS: CEPHALEXIN MONOHYDRATE 500 MG CAPSULE (UD) PO SCH ×4 (00:09→12:56)
[2019-06-30] MEDS: KETOROLAC TROMETHAMINE 30 MG/1 ML VIAL IVPUSH SCH ×3 (02:26→09:55)
[2019-06-30] MEDS: PREGABALIN 50 MG CAPSULE PO SCH (06:19)
[2019-06-30] MEDS: BACITRACIN 15 GM TUBE TOPICAL OINTMENT TP SCH (06:19)
[2019-06-30] MEDS: clonazePAM 0.5 MG TABLET PO SCH (06:19)
[2019-06-30] MEDS: CEFTRIAXONE 2 GM in DEXTROSE 5%-WATER 100 ML IVPB SCH (07:54)
[2019-06-30 09:25] VITALS: BP 121/75; PULSE 75; TEMP 97.8
[2019-06-30] MEDS ORDERED: PT OWN MED DRAWER 7, Y5N ONE ×2 (09:50→11:28)
[2019-06-30] MEDS: CHOLECALCIFEROL (VIT D3) 1,000 UNIT (25 MCG) TABLET PO SCH (09:54)
[2019-06-30] MEDS: cloNIDine HCL 0.1 MG TABLET PO SCH (09:54)
[2019-06-30] MEDS: METHADONE HCL 10 MG TABLET PO SCH (09:54)
[2019-06-30] MEDS: DOCUSATE SODIUM 100 MG CAPSULE (FP) PO SCH (09:55)
[2019-06-30] MEDS: LORATADINE 10 MG TABLET PO SCH (09:55)
[2019-06-30] MEDS: ENOXAPARIN NA (PORCINE) 40 MG/0.4 ML DISP.SYRIN SQ SCH (09:59)
[2019-06-30] MEDS ORDERED: PRAZOSIN HCL 1 MG CAPSULE PO SCH (10:00)
--- NOTE | 2019-06-30 11:52 | PN ---
Teaching Attending Note Name of Resident: Mely Ellis ATTENDING PHYSICIAN STATEMENT I saw and evaluated the patient. I reviewed the resident's note and discussed the case with the resident. I agree with the resident's findings and plan as documented. SUBJECTIVE: Reports improvement in LUE/LLE pain, tenderness. No fever/chills. OBJECTIVE: Afebrile, Hemodynamicaly Stable. Last Vital Signs Temp Pulse Resp BP Pulse Ox 97.8 F 75 20 121/75 98 06/30/19 09:25 06/30/19 09:25 06/30/19 09:25 06/30/19 09:25 06/29/19 21:00 Heart - S1, S2, RRR Lungs - clear to auscultation Abdomen - soft, non-tender. Bowel Sounds normal. Extremities - RUE swelling, tenderness proximal to and surrounding elbow improved. RLE erythema/swelling/tenderness on back of knee resolved. Abrasion gallo on knee and elbow. Neuro - AAO x 3. Muted affect. Tone/Power normal all extremities. Current Medications Generic Name Dose Route Start Last Admin Trade Name Catarina PRN Reason Stop Dose Admin Amitriptyline HCl 25 mg 06/27/19 22:00 06/29/19 22:05 Elavil - PO 25 mg HS STEPHON Administration Bacitracin 1 applic 06/27/19 22:00 06/30/19 06:19 Bacitracin - TP 1 applic TID STEPHON Administration Cephalexin HCl 500 mg 06/29/19 18:00 06/30/19 08:32 Keflex - PO 500 mg Q6HPO STEPHON Administration Cholecalciferol 2,000 unit 06/28/19 10:00 06/30/19 09:54 Vitamin D3 - PO 2,000 unit DAILY STEPHON Administration Clonazepam 1 mg 06/28/19 06:00 06/30/19 06:19 Klonopin - PO 1 mg TID STEPHON Administration Clonidine 0.1 mg 06/28/19 10:00 06/30/19 09:54 Catapres - PO 0.1 mg BID STEPHON Administration Divalproex Sodium 500 mg 06/27/19 22:00 06/29/19 22:04 Depakote *Er* - PO 500 mg HS STEPHON Administration Docusate Sodium 100 mg 06/27/19 22:00 06/30/19 09:55 Colace - PO 100 mg BID STEPHON Administration Enoxaparin Sodium 40 mg 06/27/19 20:45 06/30/19 09:59 Lovenox - SQ Not Given DAILY STEPHON Hydrocortisone Acetate 25 mg 06/27/19 21:00 Anusol Hc Suppository - RC HS PRN PAIN Sodium Chloride 1,000 mls @ 74 mls/hr 06/27/19 21:52 06/29/19 21:56 Normal Saline - IV Not Given ASDIR STEPHON Ketorolac Tromethamine 30 mg 06/28/19 12:45 06/30/19 09:55 Toradol Injection - IVPUSH 07/03/19 12:44 30 mg Q8H-IV STEPHON Administration Loratadine 10 mg 06/28/19 10:00 06/30/19 09:55 Claritin - PO 10 mg DAILY STEPHON Administration Methadone HCl 10 mg 06/27/19 22:00 06/30/19 09:54 Dolophine - PO 10 mg BID STEPHON Administration Methadone HCl 5 mg 06/28/19 18:00 06/29/19 18:12 Dolophine - PO 5 mg DAILY@1800 STEPHON Administration Mirtazapine 15 mg 06/27/19 23:15 06/29/19 21:56 Remeron - PO 15 mg HS STEPHON Administration Prazosin HCl 2 mg 06/30/19 10:00 06/30/19 11:31 Minipress - PO 2 mg DAILY STEPHON Administration Pregabalin 50 mg 06/27/19 22:00 06/30/19 06:19 Lyrica - PO 50 mg TID STEPHON Administration Propranolol HCl 60 mg 06/27/19 23:15 06/30/19 11:31 Inderal - PO 60 mg BID STEPHON Administration Propranolol HCl 30 mg 06/29/19 14:00 06/29/19 14:18 Inderal - PO 30 mg DAILY@1400 STEPHON Administration Home Medications Medication Instructions Recorded Amitriptyline HCl 25 mg PO HS 06/27/19 Bacitracin - [Bacitracin Topical 1 applic .ROUTE TID 06/27/19 Ointment -] Cetirizine HCl 10 mg PO DAILY PRN 06/27/19 Cholecalciferol (Vitamin D3) 2,000 unit PO DAILY 06/27/19 [Vitamin D3] Clonazepam 1 mg PO TID PRN 06/27/19 Clonidine HCl [Clonidine HCl ER] 0.2 mg PO HS 06/27/19 Divalproex *ER* [Depakote *ER* -] 500 mg PO HS 06/27/19 Docusate Sodium [Colace -] 100 mg PO BID 06/27/19 Hydrocortisone Acetate 25 mg RC HS PRN 06/27/19 Methadone [Dolophine -] 5 mg PO HS 06/27/19 Methadone [Dolophine -] 10 mg PO BID 06/27/19 Mirtazapine 15 mg PO DAILY 06/27/19 Prazosin HCl [Minipress -] 2 mg PO DAILY 06/27/19 Pregabalin 50 mg PO TID 06/27/19 Pregabalin [Lyrica -] 50 mg PO TID 06/27/19 Propranolol HCl 30 mg PO DAILY 06/27/19 Propranolol HCl 60 mg PO BID 06/27/19 Cephalexin Monohydrate [Keflex -] 500 mg PO Q6H #28 capsule 06/29/19 ASSESSMENT/PLAN: 28 year old male with history of Autism, OCD, Anxiety, Depression, PTSD, Spinal fracture s/p spinal nerve stimulator, Chronic pain syndrome, chronic constipation, referred by for worsening cellulitis RUE/elbow and RLE/knee 1. Cellulitis RUE/RLE CT A/P - Moderate-sized right hip joint effusion of uncertain etiology, but infection is not excluded Orthopedics consulted - no sign of septic arthritis, no need for surgical intervention. RUE US - no DVT. Initially treated with IV Ceftriaxone/Vancomycin - transitioned to oral Keflex 500mg q6h x 7 days. Ortho follow up as out-patient. 2. Chronic Pain Syndrome sec to spinal fracture s/p spinal stimulator (now removed) - on Methadone, Pregabalin. 3. Depression/Anxiety/OCD/PTSD - on Propanolol, Clonidine, Clonazepam, Mirtazapine, Amitrityline, Divalproex. 4. HTN - On Clonidine, Propanolol, Prazosin 5. Hypokalemia - repleted. 6. Anemia (normocytic)/Thrombocytopenia, etiology unclear - ?medication related. B12/Folate/Ferritin are at levels that are non-deficient. DVT Px - Lovenox SQ. Medically stable for discharge with Ortho follow up.
[2019-06-30] MEDS ORDERED: DIVALPROEX NA *ER* EXTEND REL 500 MG TABLET.SA (FP) PO SCH (13:52)
--- NOTE | 2019-06-30 15:28 | DS ---
Physical Exam: SUBJECTIVE: Patient seen and examined in the morning. No acute events overnight. No complaints of chest pain, shortness of breath, fever, nausea, vomiting, diarrhea. OBJECTIVE: Vital Signs Period Temp Pulse Resp BP Sys/Cast Pulse Ox Last 24 Hr 97.6 F-98.6 F 74-80 18-20 98-121/48-75 98-100 PHYSICAL EXAM GENERAL: Awake, alert, and fully oriented, in no acute distress. HEAD: Normocephalic. EYES: Extraocular movements intact, sclera anicteric, conjunctiva clear. Wearing glasses EARS, NOSE, THROAT: Moist mucous membranes. NECK: Normal range of motion.. LUNGS: Breath sounds equal, clear to auscultation bilaterally. No wheezes, and no crackles. HEART: Regular rate and rhythm, normal S1 and S2 without murmur, rub or gallop. ABDOMEN: Soft, nontender, not distended, normoactive bowel sounds. MUSCULOSKELETAL: Normal passive range of motion at all joints. UPPER EXTREMITIES: 2+ pulses, warm, well-perfused. RUE has erythema on medial elbow to wrist. Swelling of the elbow. No weeping, or bleeding. Decreased as compared to admission. LOWER EXTREMITIES: 2+ pulses, warm, well-perfused. No calf tenderness. No peripheral edema. Dressing in place to cover wound on lower right leg. NEUROLOGICAL: 4/5 strength in all extremities. PSYCHIATRIC: Cooperative.Avoids eye contact . Flat affect LABS Microbiology 06/27/19 14:23 Blood - Peripheral Venous Blood Culture - Preliminary NO GROWTH OBTAINED AFTER 72 HOURS, INCUBATION TO CONTINUE FOR 2 DAYS. 06/27/19 14:03 Blood - Peripheral Venous Blood Culture - Preliminary NO GROWTH OBTAINED AFTER 72 HOURS, INCUBATION TO CONTINUE FOR 2 DAYS. 06/27/19 14:25 Elbow - Left Gram Stain - Final 06/27/19 14:25 Elbow - Left Wound Culture - Final NO GROWTH OF AEROBIC ORGANISMS AFTER 48 HOURS INCUBATION 06/27/19 14:25 Knee - Left Gram Stain - Final 06/27/19 14:25 Knee - Left Wound Culture - Final NO GROWTH OF AEROBIC ORGANISMS AFTER 48 HOURS INCUBATION HOSPITAL COURSE: Date of Admission:06/27/19 Date of Discharge: 06/30/19 28M with PMH autism, OCD, anxiety, depression, PTSD, spinal fracture s/p spinal nerve stimulator which was removed, eating disorder, constipation who presents today from [facility] urgent care for further evaluation of cellulitis. Orthopedic surgery was consulted to evaluate cellulitis as it was located over the elbow initially however they did not believe surgical intervention was required. IV antibiotics were given and patient had reduction in cellulitis and erythema. Patient was treated with ceftriaxone and vancomycin initially, as cultures resulted negative he was switched to Keflex for 7 days, 500 mg Q6H as per Infectious Disease claims consultant. Patient was discharged home on all home medications in addition to new Keflex, patient had received 1 day of dosing prior to discharge. Minutes to complete discharge: 30 Discharge Summary Problems reviewed: Yes Reason For Visit: CELLULITIS Condition: Stable - Instructions Diet, Activity, Other Instructions: You were admitted to the hospital because you had a skin infection on your elbow. We treated you with IV antibiotics and your skin infection has improved. You will finish your antibiotics after discharge. Please take: Keflex 500 mg, by mouth, every 6 hours for the next 6 days. Stop taking them on July 06, 2019. Please resume taking all your other home medications as directed. Please follow up with your primary care physician within 1 week. Return to the emergency department if you have any chest pain, shortness of breath, nausea, vomiting, diarrhea, new redness of your skin, or worsening of your symptoms. Referrals: Marsha MORA [Other] - 1 Week Rubio Douglas MD [Staff Physician] - Disposition: HOME - Home Medications Comprehensive Discharge Medication List: Ambulatory Orders Amitriptyline HCl 25 mg PO HS 06/27/19 Bacitracin - [Bacitracin Topical Ointment -] 1 applic .ROUTE TID 06/27/19 Cetirizine HCl 10 mg PO DAILY PRN 06/27/19 Cholecalciferol (Vitamin D3) [Vitamin D3] 2,000 unit PO DAILY 06/27/19 Clonazepam 1 mg PO TID PRN 06/27/19 Clonidine HCl [Clonidine HCl ER] 0.2 mg PO HS 06/27/19 Divalproex *ER* [Depakote *ER* -] 1,000 mg PO HS 06/27/19 Docusate Sodium [Colace -] 100 mg PO BID 06/27/19 Hydrocortisone Acetate 25 mg RC HS PRN 06/27/19 Methadone [Dolophine -] 5 mg PO HS 06/27/19 Methadone [Dolophine -] 10 mg PO BID 06/27/19 Mirtazapine 15 mg PO DAILY 06/27/19 Prazosin HCl [Minipress -] 2 mg PO DAILY 06/27/19 Pregabalin 50 mg PO TID 06/27/19 Pregabalin [Lyrica -] 50 mg PO TID 06/27/19 Propranolol HCl 30 mg PO DAILY 06/27/19 Propranolol HCl 60 mg PO BID 06/27/19 Cephalexin Monohydrate [Keflex -] 500 mg PO Q6H #28 capsule 06/29/19 This patient is new to me today: No Emergency Visit: Yes ED Registration Date: 06/27/19 Care time: The patient presented to the Emergency Department on the above date and was hospitalized for further evaluation of their emergent condition. Critical Care patient: No - Discharge Referral Referred to [facility] No ATTENDING PHYSICIAN STATEMENT I saw and evaluated the patient. I reviewed the resident's note and discussed the case with the resident. I agree with the resident's findings and plan as documented. SUBJECTIVE: OBJECTIVE: ASSESSMENT AND PLAN:
== END 2019-06-30 14:05 | disposition home or self-care (01) | DRG 603 ==
LOC: JER 12:45 → JERBED 19:09 → J6S 06-28 00:08
PROVIDERS: ADMIT Internal Medicine
DX: L03.113 Cellulitis of right upper limb (principal); E46 Unspecified protein-calorie malnutrition; F84.0 Autistic disorder; S80.211A Abrasion, right knee, initial encounter; F41.9 Anxiety disorder, unspecified; F32.9 Major depressive disorder, single episode, unspecified; F43.10 Post-traumatic stress disorder, unspecified; F50.9 Eating disorder, unspecified; E88.09 Other disorders of plasma-protein metabolism, not elsewhere classified; D64.9 Anemia, unspecified; D69.6 Thrombocytopenia, unspecified; Z68.22 Body mass index [BMI] 22.0-22.9, adult; X58.XXXA Exposure to other specified factors, initial encounter; Y93.9 Activity, unspecified; Y92.89 Other specified places as the place of occurrence of the external cause; Y99.8 Other external cause status; G89.4 Chronic pain syndrome; E87.6 Hypokalemia; F42.9 Obsessive-compulsive disorder, unspecified
CPT/HCPCS: 36415; 70450-TC; 71045-TC-FY; 73070-TC-RT-FY; 73562-TC-RT-FY; 74176-TC; 80053; 81003; 82607; 82728; 82746; 83540; 83550; 85025; 85044; 87040; 87070; 87205; 93005; 93010; 93971; 99285-25; J0735; J7030